=== PATIENT | female | born 1945 | race Caucasian/White ===

== ENCOUNTER 2020-10-22 06:43 | Outpatient (RCR) | payer MEDICARE, SELFPAY ==
[2020-10-22] MEDS: COVID-19 VACC, MRNA(PFIZER)/PF 30 MCG/0.3 ML SYRINGE IM (15:30)
[2020-11-12] MEDS: COVID-19 VACC, MRNA(PFIZER)/PF 30 MCG/0.3 ML SYRINGE IM (14:55)
== END 2021-01-26 23:59 ==
LOC: IMMUN 06:43
PROVIDERS: PCP Internal Medicine; Visit Provider Family Medicine
DX: Z23 Encounter for immunization (principal)
CPT/HCPCS: 0001A; 0002A; 91300